=== PATIENT | female | born 1965 | race African-American/Black ===

== ENCOUNTER 2019-06-23 11:39 | Emergency (ER) | payer MEDICARE, OTHER ==
[~2019-06-23] VITALS: Ht 149.9 cm; Wt 86.0 kg
[2019-06-23] MEDS ORDERED: HYDROCODONE/ACETAMINOPHEN 5/325MG TABLET PO ONE (12:30)
[2019-06-23] MEDS ORDERED: DEXAMETHASONE 10 MG/ML VIAL IM ONE (12:30)
[2019-06-23 13:47] VITALS: BP 133/77
== END 2019-06-23 13:49 | disposition home or self-care (01) ==
LOC: ER 11:39
DX: K04.7 Periapical abscess without sinus (principal); F17.200 Nicotine dependence, unspecified, uncomplicated; Z71.6 Tobacco abuse counseling; I10 Essential (primary) hypertension; J45.909 Unspecified asthma, uncomplicated; M19.90 Unspecified osteoarthritis, unspecified site
CPT/HCPCS: 96372; 99283; 99406; J1100

== ENCOUNTER 2020-02-03 13:03 | Emergency (ER) | payer MEDICARE, OTHER ==
[~2020-02-03] VITALS: Ht 149.9 cm; Wt 78.0 kg
[2020-02-03 13:53] VITALS: BP 168/86
== END 2020-02-03 13:55 | disposition home or self-care (01) ==
LOC: ER 13:03
DX: I88.9 Nonspecific lymphadenitis, unspecified (principal); J45.909 Unspecified asthma, uncomplicated; E78.00 Pure hypercholesterolemia, unspecified; I10 Essential (primary) hypertension; Z98.890 Other specified postprocedural states
CPT/HCPCS: 99282

== ENCOUNTER 2021-02-20 09:03 | Emergency (ER) | payer MEDICARE, OTHER ==
[~2021-02-20] VITALS: Ht 152.4 cm; Wt 75.0 kg
[2021-02-20] MEDS ORDERED: ACETAMINOPHEN 325MG TABLET PO ONE (09:30)
[2021-02-20] MEDS ORDERED: AZIT250T12 MT (10:32)
[2021-02-20] MEDS ORDERED: ALBU18HF2 IH (10:32)
[2021-02-20] MEDS ORDERED: P50 MT (10:32)
[2021-02-20 10:40] VITALS: BP 122/70
== END 2021-02-20 10:40 | disposition home or self-care (01) ==
LOC: ER 09:03
DX: U07.1 COVID-19 (principal); J45.909 Unspecified asthma, uncomplicated; F17.290 Nicotine dependence, other tobacco product, uncomplicated; F12.10 Cannabis abuse, uncomplicated; E78.00 Pure hypercholesterolemia, unspecified; I10 Essential (primary) hypertension; Z98.890 Other specified postprocedural states
CPT/HCPCS: 71045; 99284; 99406; C9803; U0003; U0005

== ENCOUNTER 2022-03-27 08:59 | Emergency (ER) | payer MEDICARE, OTHER ==
[~2022-03-27] VITALS: Ht 149.9 cm; Wt 76.0 kg
[~2022-03-27 08:59] MED LIST: ALBU18HF2 IH; AZIT250T12 MT; P50 MT
[2022-03-27 09:20] VITALS: BP 131/94
[2022-03-27 11:12] LABS: CLARITY URINE CLOUDY (CLEAR); COLOR URINE YELLOW (YELLOW); KETONES URINE NEGATIVE (NEGATIVE); LEUKOCYTE ESTERASE URINE 1+ (NEGATIVE); NITRITE URINE NEGATIVE (NEGATIVE); OCCULT BLOOD URINE TRACE (NEGATIVE); PH URINE 5.5 (4.5-8.0); PROTEIN URINE TRACE (NEGATIVE); SPECIFIC GRAVITY URINE 1.024 (1.005-1.030)
[2022-03-27] MEDS ORDERED: CEPH500C2 MT (12:38)
[2022-03-31 04:08] LABS: NEISSERIA GONORRHOEAE NAA Negative (Negative)
== END 2022-03-27 12:57 | disposition home or self-care (01) ==
LOC: ER 10:10
DX: N39.0 Urinary tract infection, site not specified (principal); F17.210 Nicotine dependence, cigarettes, uncomplicated; E78.00 Pure hypercholesterolemia, unspecified; I10 Essential (primary) hypertension; M19.90 Unspecified osteoarthritis, unspecified site; J45.909 Unspecified asthma, uncomplicated; Z71.6 Tobacco abuse counseling; Z98.890 Other specified postprocedural states
CPT/HCPCS: 81003; 87491; 87591; 99284; 99406

== ENCOUNTER 2022-10-28 12:39 | Emergency (ER) | payer MEDICARE, OTHER ==
[~2022-10-28] VITALS: Ht 149.9 cm; Wt 71.2 kg
[~2022-10-28 12:39] MED LIST changes: +CEPH500C2 MT
[2022-10-28] MEDS ORDERED: KETOROLAC 30MG/ML VIAL IM ONE (14:30)
[2022-10-28 14:53] LABS: CLARITY URINE CLEAR (CLEAR); COLOR URINE YELLOW (YELLOW); KETONES URINE NEGATIVE (NEGATIVE); LEUKOCYTE ESTERASE URINE NEGATIVE (NEGATIVE); NITRITE URINE NEGATIVE (NEGATIVE); OCCULT BLOOD URINE NEGATIVE (NEGATIVE); PH URINE 5.5 (4.5-8.0); PROTEIN URINE NEGATIVE (NEGATIVE); SPECIFIC GRAVITY URINE 1.018 (1.005-1.030); UROBILINOGEN URINE 0.2 E.U./dL (0.2-1.0)
[2022-10-28 15:02] VITALS: BP 132/77
[2022-10-28] MEDS ORDERED: IBUP-2029 MT (17:03)
[2022-10-28] MEDS ORDERED: ACET-2708 MT (17:22)
== END 2022-10-28 17:27 | disposition home or self-care (01) ==
LOC: ER 15:01
DX: M54.50 Low back pain, unspecified (principal); R30.0 Dysuria; D21.9 Benign neoplasm of connective and other soft tissue, unspecified; J45.909 Unspecified asthma, uncomplicated; E78.00 Pure hypercholesterolemia, unspecified; I10 Essential (primary) hypertension; Z98.890 Other specified postprocedural states; Z79.899 Other long term (current) drug therapy
CPT/HCPCS: 76830; 76856; 81003; 81025; 96372; 99285; J1885

== ENCOUNTER 2022-11-09 11:14 | Emergency (ER) | payer MEDICARE, OTHER ==
[~2022-11-09] VITALS: Ht 149.9 cm; Wt 71.0 kg
[~2022-11-09 11:14] MED LIST changes: +ACET-2708 MT
[2022-11-09 11:19] VITALS: BP 157/81
[2022-11-09] MEDS ORDERED: ACETAMINOPHEN 325MG TABLET PO ONE (13:30)
== END 2022-11-09 13:52 | disposition home or self-care (01) ==
LOC: ER 11:14
DX: I88.9 Nonspecific lymphadenitis, unspecified (principal); F17.290 Nicotine dependence, other tobacco product, uncomplicated
CPT/HCPCS: 99282; 99406

== ENCOUNTER 2024-10-08 16:51 | Emergency (ER) | payer MEDICARE, OTHER ==
[~2024-10-08] VITALS: Ht 162.6 cm; Wt 72.0 kg
[2024-10-08 16:59] VITALS: BP 141/84; PULSE 91; RESP 20; TEMP 36.9; O2SAT 98
== END 2024-10-08 18:31 | disposition left against medical advice (07) ==
LOC: ER 17:05
DX: R06.02 Shortness of breath (principal); R59.1 Generalized enlarged lymph nodes; I10 Essential (primary) hypertension; F10.90 Alcohol use, unspecified, uncomplicated; F12.90 Cannabis use, unspecified, uncomplicated; Y90.9 Presence of alcohol in blood, level not specified
CPT/HCPCS: 99283